=== PATIENT | female | born 1955 | race Caucasian/White ===

== ENCOUNTER 2018-09-12 12:10 | Emergency (ER) | payer OTHER ==
[~2018-09-12] VITALS: Ht 172.7 cm; Wt 49.9 kg
[~2018-09-12 12:10] MED LIST: CORTISPORIN OTI10 M2 OTIC
[2018-09-12] MEDS ORDERED: NORCO 5-325 TA1 EACH PO (13:58)
[2018-09-12] MEDS ORDERED: BACTRIM DS TAB1 EACH PO (13:58)
[2018-09-12 14:14] VITALS: BP 103/56
== END 2018-09-12 14:14 | disposition home or self-care (01) ==
LOC: ER 12:10
DX: L02.415 Cutaneous abscess of right lower limb (principal); F17.210 Nicotine dependence, cigarettes, uncomplicated

== ENCOUNTER 2018-12-01 13:01 | Inpatient (IN) | payer OTHER ==
[~2018-12-01] VITALS: Ht 172.7 cm; Wt 48.5 kg
[2018-12-01 13:01] VITALS: BP 92/53
[~2018-12-01 13:01] MED LIST changes: +BACTRIM DS TAB1 EACH PO; +NORCO 5-325 TA1 EACH PO
--- NOTE | 2018-12-01 13:10 | NUR ---
ASSUMED PATIENT CARE, INITIAL ASSESSMENT COMPLETE
[2018-12-01 13:49] LABS: BE(vivo) 3.6 mmol/L (-2 to +3); HCO3 29.1 mmol/L (22.0-26.0); PCO2 47.1 mmHg (35.0-45.0); pH 7.408 (7.360-7.450); sO2 86.6 % (92.0-98.0)
[2018-12-01 13:50] LABS: PO2 51.7 mmHg (80.0-100.0)
[2018-12-01 13:52] LABS: HEMOGLOBIN 14.6 gm/dL (12.0-15.0); MCH 29.9 pg (26.0-34.0); PLATELET COUNT 131 thou/uL (150-400); RBC 4.88 mil/uL (4.20-5.00); RDW 14.3 % (10.5-14.5)
[2018-12-01 13:54] LABS: HEMATOCRIT 42.8 % (37.0-47.0); MCV 87.8 fL (80.0-100.0); WBC 4.3 thou/uL (4.0-11.0)
[2018-12-01 14:03] LABS: ANION GAP 6 mmol/L (7-16); BUN 5 mg/dL (7-18); CALCIUM 8.5 mg/dL (8.5-10.1); CHLORIDE 96 mmol/L (98-107); CO2 34 mmol/L (21-32); CREATININE 0.7 mg/dL (0.6-1.0); GLUCOSE 117 mg/dL (74-106); SODIUM 136 mmol/L (136-145)
[2018-12-01 14:06] LABS: POTASSIUM 2.8 mmol/L (3.5-5.1)
[2018-12-01] MEDS ORDERED: LIPITOR 20 MG T20 M1 PO (14:11)
[2018-12-01 14:12] LABS: SGOT 39 U/L (15-37); SGPT 26 U/L (30-65); TOTAL BILIRUBIN 0.3 mg/dL (<0.1-1.0); TOTAL PROTEIN 6.7 g/dL (6.4-8.2); TROPONIN-I <0.06 ng/mL (<0.06)
[2018-12-01] MEDS ORDERED: HYDROXYZINE HCL25 M1 PO (14:12)
[2018-12-01] MEDS ORDERED: ENTRESTO 24 MG1 EACH PO (14:13)
[2018-12-01] MEDS ORDERED: ALL DAY ALLERGY10 M3 PO (14:13)
[2018-12-01] MEDS ORDERED: VERAPAMIL E.R240 M1 PO (14:14)
[2018-12-01] MEDS ORDERED: PROAIR HFA8.5 GM (14:16)
[2018-12-01 14:53] LABS: ABSOLUTE NEUTROPHILS 2.5 thou/uL (1.4-8.2)
[2018-12-01 14:56] VITALS: BP 104/60
[2018-12-01 14:57] LABS: MAGNESIUM 1.7 mg/dL (1.8-2.4)
--- NOTE | 2018-12-01 15:29 | NUR ---
REORT TO [facility] RN, PT TRANSPORTED TO ROOM 364
[2018-12-01 15:36] VITALS: BP 104/60
[2018-12-01 16:03] LABS: FOLIC ACID 19.4 ng/mL (8.6-58.9)
[2018-12-01] MEDS ORDERED: TRAZODONE HCL100 MG PO (16:17)
[2018-12-01] MEDS ORDERED: VENTOLIN HFA 1818 GM INH (16:30)
[2018-12-01 16:58] VITALS: BP 120/73
--- NOTE | 2018-12-01 18:45 | NUR ---
ASSUMED PATIENT CARE FROM ED. A&OX4. UP STAND BY. 2L NC. ADMIT COMPLETED. ENTRESTO SENT TO PHARMACY FOR VERIFICATION. PATIENT WORKING TOWARDS GOALS.
[2018-12-01 20:05] VITALS: BP 119/72
[2018-12-01 23:45] VITALS: BP 111/64
[2018-12-02 04:45] VITALS: BP 127/68
[2018-12-02 05:28] LABS: HEMATOCRIT 40.3 % (37.0-47.0); HEMOGLOBIN 13.5 gm/dL (12.0-15.0); MCH 29.5 pg (26.0-34.0); MCHC 33.5 g/dL (28.0-37.0); MCV 88.2 fL (80.0-100.0); PLATELET COUNT 115 thou/uL (150-400); RBC 4.57 mil/uL (4.20-5.00); RDW 14.2 % (10.5-14.5); WBC 2.3 thou/uL (4.0-11.0)
[2018-12-02 05:44] LABS: CALCIUM 8.8 mg/dL (8.5-10.1); CREATININE 0.4 mg/dL (0.6-1.0); MAGNESIUM 1.9 mg/dL (1.8-2.4); POTASSIUM 4.3 mmol/L (3.5-5.1)
[2018-12-02 06:38] LABS: ABSOLUTE NEUTROPHILS 1.5 thou/uL (1.4-8.2); ATYPICAL LYMPHS 6 %
--- NOTE | 2018-12-02 06:43 | NUR ---
Patient slept some overnight. Continues to have intermittent, non-productive cough. Remained on 2L NC with O2 sats with normal limits. No c/o pain. Patient progressing towards meeting goals.
[2018-12-02 07:54] VITALS: BP 157/80
--- NOTE | 2018-12-02 10:56 | NUR ---
INITIAL ASSESSMENT: Pt evaluated for d/c planning needs. Reviewed chart and spoke with nurse and pt. Pt is alert and oriented. Pt lives in apartment with . Neither pt nor spouse work. Pt was independent with ADL's prior to admission to the hospital. Pt said that she started receiving her Social Security disability check this month. Pt has walker and cane at home. Pt plans on returning home on d/c from hospital. Will remain available to assist as needed.
--- NOTE | 2018-12-02 10:59 | NUR ---
ASSUMED PATIENT CARE AT 0715. A&OX4. NO COMPLAINTS OF PAIN. STAND BY ASSIST TO THE BATHROOM. PATIENT STILL NEEDING O2 AT 2L NC. SHORTNESS OF BREATH WITH ACTIVITY. ENTRESTO RESTARTED. WORKING TOWARDS DISCHARGE GOALS.
[2018-12-02 11:04] VITALS: BP 134/90
[2018-12-02 16:00] VITALS: BP 140/73
[2018-12-02 20:10] VITALS: BP 146/86
--- NOTE | 2018-12-03 03:25 | NUR ---
ASSUMED PT CARE AROUND 1900. A&OX4. PT SLEPT OFF AND ON DURING THE NIGHT. RESP EVEN AND UNLABORED. TITRATED O2 DOWN FROM 2.5L NC TO 1.5L NC. WILL CONTINUE TO SPOT CHECK O2 SATS. VSS. NO MAJOR COMPLAINTS THIS SHIFT. PT IS HOPING TO D/C HOME SOON. PROGRESSING TOWARD POC GOALS. WILL CONITNUE TO MONITOR FURTHER.
[2018-12-03 06:00] VITALS: BP 137/72
[2018-12-03 06:01] LABS: HEMOGLOBIN 13.1 gm/dL (12.0-15.0); MCH 29.4 pg (26.0-34.0); MCHC 33.5 g/dL (28.0-37.0); MCV 87.9 fL (80.0-100.0); RBC 4.44 mil/uL (4.20-5.00); RDW 14.3 % (10.5-14.5); WBC 7.3 thou/uL (4.0-11.0)
[2018-12-03 06:09] LABS: CALCIUM 8.8 mg/dL (8.5-10.1); CREATININE 0.6 mg/dL (0.6-1.0); POTASSIUM 3.6 mmol/L (3.5-5.1)
[2018-12-03 07:33] VITALS: BP 143/72
[2018-12-03 15:00] VITALS: BP 128/71
--- NOTE | 2018-12-03 15:56 | NUR ---
ASSUMED PATIENT CARE AT 0715. A&OX4. UP ADLIB. ON RA MOST OF THE DAY. 1L NC AVAILABLE FOR COMFORT. PATIENT STATES THEY ARE FEELING MUCH BETTER. PLAN IS TO DC HOME TOMORROW WITH NO NEEDS. HOURLY ROUNDING TO CHECK NEEDS.
[2018-12-03 21:00] VITALS: BP 136/74
--- NOTE | 2018-12-04 05:00 | NUR ---
ASSUMED PT CARE AROUND 1900. A&OX4. PT SLEPT OFF AND ON DURING THE NIGHT. NO MAJOR COMPLAINTS THIS SHIFT. PT FEELING BETTER OVERALL. SHE IS HOPING TO DISCHARGE HOME TODAY. PROGRESSING TOWARD POC GOALS. WILL CONTINUE TO MONITOR FURTHER.
[2018-12-04 05:10] VITALS: BP 138/75
[2018-12-04 05:59] LABS: HEMATOCRIT 41.8 % (37.0-47.0); HEMOGLOBIN 14.1 gm/dL (12.0-15.0); MCH 29.5 pg (26.0-34.0); MCHC 33.8 g/dL (28.0-37.0); MCV 87.5 fL (80.0-100.0); RBC 4.78 mil/uL (4.20-5.00); RDW 14.5 % (10.5-14.5)
[2018-12-04 06:11] LABS: CALCIUM 8.9 mg/dL (8.5-10.1); CREATININE 0.5 mg/dL (0.6-1.0); POTASSIUM 3.1 mmol/L (3.5-5.1)
[2018-12-04 07:06] VITALS: BP 163/91
--- NOTE | 2018-12-04 16:02 | NUR ---
ASSUMED CARE AT 0700. CALLS APPROPRITATELY. RESTING O2 SAT 85% NOTED. APPLIED O2 2L KEEP SAT AT 90%. SEEN BY AT BEDSIDE. PER MD, PT WILL NEED HOME OXYGEN. PT IS WILLING TO STAY TILL TOMORROW TO GET SOME RESOURCE FROM SW'S HELP. RECEIVED A REPORT FROM RT LOCK THAT PT C/O LEFT EAR DEC HEARING. WILL REPORT TO . TOLERATED IV SOLUMEDROL TX VERY WELL. DENIES CHEST PAIN, SOB, CHILLS, V/N. WILL CONT TO MONITOR FOR ANY CHANGES IN CONDITION.
[2018-12-04 17:19] VITALS: BP 141/70
[2018-12-04 19:45] VITALS: BP 154/76
[2018-12-05 03:16] VITALS: BP 139/86
[2018-12-05 04:20] LABS: HEMATOCRIT 39.9 % (37.0-47.0); HEMOGLOBIN 13.4 gm/dL (12.0-15.0); MCH 29.3 pg (26.0-34.0); MCHC 33.5 g/dL (28.0-37.0); MCV 87.4 fL (80.0-100.0); RBC 4.56 mil/uL (4.20-5.00); RDW 14.2 % (10.5-14.5); WBC 10.6 thou/uL (4.0-11.0)
--- NOTE | 2018-12-05 04:28 | NUR ---
ASSUMED PT CARE AROUND 1900. A&OX4. DENIES ANY PAIN OR SIGNIFICANT SOA. UP AD ЕКАТЕРИНА AROUND THE ROOM WITH STEADY GAIT. OFFERED PT SLEEPING MEDICATION AT BEDTIME. PT STATED SHE WANTED TO TRY TO FALL ASLEEP WITHOUT MEDICATION TONIGHT. PROGRESSING TOWARD POC GOALS. PT IS HOPING TO DISCHARGE HOME TODAY. WILL CONTINUE TO MONITOR FURTHER.
[2018-12-05 05:05] LABS: CALCIUM 8.5 mg/dL (8.5-10.1); CREATININE 0.7 mg/dL (0.6-1.0); POTASSIUM 3.4 mmol/L (3.5-5.1)
[2018-12-05 08:06] VITALS: BP 146/81
[2018-12-05 15:40] VITALS: BP 139/87
[2018-12-05 15:46] VITALS: BP 146/81
[2018-12-05] MEDS ORDERED: PROBIOTIC1 EAC1 PO (15:55)
[2018-12-05] MEDS ORDERED: CIPRO500 MG PO (15:55)
[2018-12-05] MEDS ORDERED: PREDNISONE 10 M10 MG PO (15:55)
[2018-12-05] MEDS ORDERED: MUCINEX600 MG PO (15:55)
[2018-12-05] MEDS ORDERED: PROTONIX40 M1 PO (15:55)
[2018-12-05] MEDS ORDERED: HOME OXYGEN (15:57)
[2018-12-05 16:39] VITALS: BP 146/81
--- NOTE | 2018-12-05 16:48 | NUR ---
DISCHARGE NOTE: DANIELLE reviewed chart and spoke with nursing and attending physician. Pt is medically stable for discharge home today. Pt requiring home O2: 2L continuously. Pt does not have insurance, but has met with [employer] regarding [place]-Medicaid application. DANIELLE discussed with Director of Case Mgmt, who states that [facility] is able to pay for one month of oxygen for pt. DANIELLE met with pt at bedside to discuss discharge needs: Home O2. Pt is aware and agreeable with plan, and states she may have funds to pay for some of the O2 if Medicaid does not go through. DANIELLE confirmed pt's home address/phone number. 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 DANIELLE faxed clinical info and order to [facility] and spoke with Caro in intake, who confirms they are able to accept pt and provide home O2. Home O2 to be delivered to [facility] this evening. DANIELLE faxed new scripts to [facility] to have filled. DANIELLE spoke with Eve in the pharmacy. Case Mgmt to be billed for new meds. Pt to take original scripts to Outpatient pharmacy before 1800 this evening to picking machine operator helper meds. Contact info for [facility] placed in pt's discharge summary. DANIELLE spoke with [facility] on-call class a truck driver, who states he will be at [facility] in 20-30 minutes. No additional DANIELLE needs identified at this time, but is available to assist should needs arise.
--- NOTE | 2018-12-05 17:46 | NUR ---
PATIENT WILL BE DISCHARGED THIS PM. SHE HAS WANTED TO GO HOME ALL DAY. IS HERE TO PICK HER UP. NO NEW COMPLAINED NOTED. SHE WILL NEED OXYGEN AT HOME PER RT.
== END 2018-12-05 18:25 | disposition home or self-care (01) | DRG 193 ==
LOC: ER 13:01 → 3W 14:12 → EROBS 14:12 → 3W 15:37
PROVIDERS: Nurse Practitioner; Physician Assistant; ADMIT Internal Medicine
DX: J18.9 Pneumonia, unspecified organism (principal); J96.01 Acute respiratory failure with hypoxia; J44.1 Chronic obstructive pulmonary disease with (acute) exacerbation; J44.0 Chronic obstructive pulmonary disease with (acute) lower respiratory infection; E46 Unspecified protein-calorie malnutrition; Z68.1 Body mass index [BMI] 19.9 or less, adult; I42.9 Cardiomyopathy, unspecified; I11.0 Hypertensive heart disease with heart failure; I50.9 Heart failure, unspecified; E78.00 Pure hypercholesterolemia, unspecified; J44.9 Chronic obstructive pulmonary disease, unspecified; Y95 Nosocomial condition; F32.9 Major depressive disorder, single episode, unspecified; E87.6 Hypokalemia; E83.42 Hypomagnesemia; F41.9 Anxiety disorder, unspecified; D69.6 Thrombocytopenia, unspecified; F17.210 Nicotine dependence, cigarettes, uncomplicated; Z98.42 Cataract extraction status, left eye; Z98.41 Cataract extraction status, right eye; Z71.6 Tobacco abuse counseling; Z79.899 Other long term (current) drug therapy; Z91.012 Allergy to eggs; Z72.89 Other problems related to lifestyle
CPT/HCPCS: 10879